=== PATIENT | male | born 1990 | race Caucasian/White ===

== ENCOUNTER 2017-06-03 19:14 | Emergency (ER) | payer OTHER ==
[~2017-06-03] VITALS: Ht 180.3 cm; Wt 70.0 kg
[~2017-06-03 19:14] MED LIST: CEFTR2P2 IV; HYDR10TA16 PO
--- NOTE | 2017-06-03 19:33 | PD ---
HPI Chief Complaint: ba Time Seen by Provider: 19:33 Travel History International Travel<30 days: No Contact w/Intl Traveler<30days: No Traveled to known affect area: No History of Present Illness HPI 27-year-old male presents to emergency department under Bee act for psychiatric evaluation. Patient reports an argument with his girlfriend caused him to become upset. He held a knife to his throat threatening to end it all. He states that he really has no intent to do this but was upset. Reports taking Suboxone and taking half an Adderall. Reports occasional cocaine use. Reports no medical history. No other symptoms to report at this time. PFSH Past Medical History Blood Disorders: No Heart Rhythm Problems: No Cancer: No Cardiovascular Problems: No High Cholesterol: No Chemotherapy: No Chest Pain: No Congestive Heart Failure: No Diabetes: No Endocrine: No Gastrointestinal Disorders: No Genitourinary: No Hepatitis: Yes (HEP C) Herniated Disk: Yes (L3, L4, L5) Immune Disorder: No Musculoskeletal: Yes (HERNIATED DISCS L3-L5) Neurologic: No Psychiatric: No Reproductive: No Respiratory: No Immunizations Current: No Thyroid Disease: No Past Surgical History Abdominal Surgery: No Cardiac Surgery: No Ear Surgery: No Endocrine Surgery: No Eye Surgery: No Genitourinary Surgery: No Gynecologic Surgery: No Oral Surgery: Yes (TONSIL REMOVAL) Thoracic Surgery: No Tonsillectomy: Yes Social History Alcohol Use: No Tobacco Use: Yes Substance Use: Yes Allergies-Medications (Allergen,Severity, Reaction): Uncoded Allergies: NAUSEA MEDICATION (Allergy, Severe, Anaphylaxis, 06/14/12) Reported Meds & Prescriptions Reported Meds & Active Scripts Active Review of Systems Except as stated in HPI: all other systems reviewed are Neg Physical Exam Narrative GENERAL: Thin male patient, sitting up on the stretcher in no acute distress SKIN: Focused skin assessment warm, diaphoretic HEAD: Atraumatic. Normocephalic. EYES: Pupils equal and round. No scleral icterus. No injection or drainage. ENT: No nasal bleeding or discharge. Mucous membranes pink and moist. NECK: Trachea midline. No JVD. CARDIOVASCULAR: Tachycardic rate and rhythm. No murmur appreciated. RESPIRATORY: No accessory muscle use. Clear to auscultation. Breath sounds equal bilaterally. GASTROINTESTINAL: Abdomen soft, non-tender, nondistended. Hepatic and splenic margins not palpable. MUSCULOSKELETAL: No obvious deformities. No clubbing. No cyanosis. No edema. NEUROLOGICAL: Awake and alert. No obvious cranial nerve deficits. Motor grossly within normal limits. Normal speech. Data Data Last Documented VS Vital Signs Date Time Temp Pulse Resp B/P Pulse Ox O2 Delivery O2 Flow Rate FiO2 06/03/17 19:51 99.7 124 16 146/98 100 Orders Complete Blood Count With Diff (06/03/17 19:32) Basic Metabolic Panel (Bmp) (06/03/17 19:32) Psych Screen (06/03/17 19:32) Drug Screen, Random Urine (06/03/17 19:32) Alcohol (Ethanol) (06/03/17 19:32) Salicylates (Aspirin) (06/03/17 19:32) Tylenol (Acetaminophen) (06/03/17 19:32) Iv Access Insert/Monitor (06/03/17 21:33) Sodium Chlor 0.9% 1000 Ml Inj (Ns 1000 M (06/03/17 21:45) Sodium Chlor 0.9% 1000 Ml Inj (Ns 1000 M (06/03/17 22:45) Sodium Chlor 0.9% 1000 Ml Inj (Ns 1000 M (06/03/17 22:45) Labs Laboratory Tests Test 06/03/17 20:15 White Blood Count 15.8 TH/MM3 Red Blood Count 5.27 MIL/MM3 Hemoglobin 15.9 GM/DL Hematocrit 45.1 % Mean Corpuscular Volume 85.6 FL Mean Corpuscular Hemoglobin 30.1 PG Mean Corpuscular Hemoglobin 35.2 % Concent Red Cell Distribution Width 12.5 % Platelet Count 312 TH/MM3 Mean Platelet Volume 6.7 FL Neutrophils (%) (Auto) 84.7 % Lymphocytes (%) (Auto) 9.2 % Monocytes (%) (Auto) 5.9 % Eosinophils (%) (Auto) 0.0 % Basophils (%) (Auto) 0.2 % Neutrophils # (Auto) 13.4 TH/MM3 Lymphocytes # (Auto) 1.5 TH/MM3 Monocytes # (Auto) 0.9 TH/MM3 Eosinophils # (Auto) 0.0 TH/MM3 Basophils # (Auto) 0.0 TH/MM3 CBC Comment DIFF FINAL Differential Comment Sodium Level 143 MEQ/L Potassium Level 3.8 MEQ/L Chloride Level 108 MEQ/L Carbon Dioxide Level 26.0 MEQ/L Anion Gap 9 MEQ/L Blood Urea Nitrogen 25 MG/DL Creatinine 1.59 MG/DL Estimat Glomerular Filtration 52 ML/MIN Rate Random Glucose 129 MG/DL Calcium Level 9.9 MG/DL Salicylates Level 1.8 MG/DL Acetaminophen Level LESS THAN 2.0 MCG/ML Ethyl Alcohol Level LESS THAN 3 MG/DL MDM Medical Decision Making Medical Screen Exam Complete: Yes Emergency Medical Condition: Yes Medical Record Reviewed: Yes Differential Diagnosis Mood disorder versus personality disorder versus adjustment reaction disorder versus substance abuse Narrative Course 27-year-old male presents to the emergency department under Bee act for psychiatric evaluation. Patient appears without distress. He is diaphoretic and tachycardic however he does admit to taking Adderall and occasional cocaine. CBC is with mild leukocytosis of 15.8, likely stress reaction. Chemistry is that the unit 25, creatinine 1.59, GFR 52. Patient is given 3 L normal saline IV fluids. Patient is medically cleared to undergo psychiatric screening for further evaluation and disposition. Mental health screening discussed with the patient. Psychiatric screen ordered. Diagnosis Primary Impression: Adjustment disorder with emotional disturbance Additional Impression: STACY (acute kidney injury) Condition: Stable Annabella Mae Jun 03, 2017 19:33
[2017-06-03 19:51] VITALS: BP 146/98; PULSE 124; RESP 16; TEMP 99.7; O2SAT 100
[2017-06-03 20:32] LABS: AUTOMATED NEUTROPHIL # 13.4 TH/MM3 (1.8-7.7); BASOPHIL % 0.2 % (0.0-2.0); HEMATOCRIT 45.1 % (39.0-51.0); HEMO FLAGS DIFF FINAL; LYMPH % 9.2 % (9.0-44.0); LYMPHOCYTE # 1.5 TH/MM3 (1.0-4.8); MEAN CELL VOLUME 85.6 FL (80.0-100.0); MEAN CORPUSCULAR HEMOGLOBIN 30.1 PG (27.0-34.0); MEAN CORPUSCULAR HGB CONC 35.2 % (32.0-36.0); MONO % 5.9 % (0.0-8.0); NEUT % 84.7 % (16.0-70.0); PLATELET COUNT 312 TH/MM3 (150-450); RED BLOOD COUNT 5.27 MIL/MM3 (4.50-5.90); RED CELL DISTRIBUTION WIDTH 12.5 % (11.6-17.2); WHITE BLOOD COUNT 15.8 TH/MM3 (4.0-11.0)
[2017-06-03 20:58] LABS: ANION GAP 9 MEQ/L (5-15); BLOOD UREA NITROGEN 25 MG/DL (7-18); CHLORIDE 108 MEQ/L (98-107); GLOMERULAR FILTRATION RATE 52 ML/MIN (>89); POTASSIUM 3.8 MEQ/L (3.5-5.1); SODIUM (NA) 143 MEQ/L (136-145)
[2017-06-03 20:59] LABS: ACETAMINOPHEN LESS THAN 2.0 MCG/ML (10.0-30.0)
[2017-06-03] MEDS ORDERED: SODIUM CHLOR 0.9% 1000 ML INJ 1,000 ML IV ONE ×3 (21:45→22:45)
[2017-06-04 07:19] VITALS: BP 128/86; PULSE 99; RESP 16; O2SAT 100
[2017-06-04] MEDS ORDERED: ACETAMINOPHEN 500 MG CPLT PO ONE (07:30)
[2017-06-04] MEDS ORDERED: ONDANSETRON ODT 4 MG TAB PO ONE (09:45)
[2017-06-04] MEDS ORDERED: diphenhydrAMINE HCL 50 MG/ML VIAL IV PUSH ONE (12:00)
[2017-06-04] MEDS ORDERED: PROCHLORPERAZINE INJ 10 MG/2 ML VIAL IV PUSH ONE (12:00)
[2017-06-04 12:02] VITALS: BP 130/80; PULSE 107; RESP 22; O2SAT 98
--- NOTE | 2017-06-04 12:29 | PD ---
History of Present Illness Chief Complaint: Psychiatric Symptoms Time Seen by Provider: 12:30 Travel History International Travel<30 Days: No Contact w/Intl Traveler<30days: No Known affected area: No Legal Status Legal Status: Bee Act Bee Act Signed By: Marjorie Hinds History of Present Illness: History of Present Illness HPI 27-year-old male with no previous psychiatric history presents to emergency department under Bee act for psychiatric evaluation. The BA alleges that he told his mother he took some Adderall and started to hallucinate . Family members stated that he put a knife to his neck and wanted to kill himself [place] was seeing people that were not there. I attempted to see the patient at 1230 but he had received medication and was unable to be evaluated as he was very sleepy. I saw him again this evening.he was asleep but awakened with verbal prompt. he is alert, coherent, calm. He denies any depression. Denies any suicidal or homicidal ideation. he has no recollection of saying he wanted to harm himself. He admits to use of amphetamines and other substances yesterday after he was involved in an argument with his girlfriend. He denies daily use. His toxicology is positive for amphetamines, benzos and cannabinoids. He denies daily use. he states " i would not want to hurt myself and I have no intention of hurting myself. I have a beautiful little boy named Danny that I love very much". PFSH Past Medical History Blood Disorders: No Heart Rhythm Problems: No Cancer: No Cardiovascular Problems: No High Cholesterol: No Chemotherapy: No Chest Pain: No Congestive Heart Failure: No Diabetes: No Diminished Hearing: No Endocrine: No Gastrointestinal Disorders: No Genitourinary: No Hepatitis: Yes (HEP C) Herniated Disk: Yes (L3, L4, L5) Immune Disorder: No Musculoskeletal: Yes (HERNIATED DISCS L3-L5) Neurologic: No Psychiatric: No Reproductive: No Respiratory: No Immunizations Current: No Thyroid Disease: No Tetanus Vaccination: Unknown Influenza Vaccination: No Past Surgical History Abdominal Surgery: No Cardiac Surgery: No Ear Surgery: No Endocrine Surgery: No Eye Surgery: No Genitourinary Surgery: No Gynecologic Surgery: No Oral Surgery: Yes (TONSIL REMOVAL) Thoracic Surgery: No Tonsillectomy: Yes Psychiatric History Psychiatric History Hx Psychiatric Treatment: ADJUSTEMENT DISORDER DIAGNOSIS History of Inpatient Treatment: Yes Guns or firearms in home: No Social History Single male . Works as a cinder block mason. Currently living with his mother. from his son's mother. Hx Alcohol Use: No Hx Tobacco Use: Yes Hx Substance Use: Yes Substance Use Type: Alcohol, Marijuana, Synth Opiates-Pain Pills Other Substances Used: PATIENT STATES HE TAKES SUBOXONE DAILY Hx of Substance Use Treatment: No Family Psychiatric History Negative Allergies-Medications (Allergen,Severity, Reaction): Uncoded Allergies: NAUSEA MEDICATION (Allergy, Severe, Anaphylaxis, 06/14/12) Reported Meds & Prescriptions Reported Meds & Active Scripts Active Review of Systems Except as stated in HPI: all other systems reviewed are Neg Exam Alert: Yes [place]: Person (ox4) Mood: Calm Affect: Appropriate Speech: Clear, Logical Eye Contact: Normal Memory Intact: Comment (No impairmetn) Hallucinations: Other (Negative) Delusions: No Suicidal: Ideation (Deneis any) Homicidal: Ideation (Deneis any) Insight/Judgement Fair. Not impaired. MDM Medical Decision Making Medical Record Reviewed: Yes Assessment/Plan 27 year old with history of substance use disorder. At thsi time he is calm and coherent and logical. There is no psychosis and no lisa. No suicidal or homicidal ideation, intent or plan. BA lifted. Counseled regarding substance use. Orders Complete Blood Count With Diff (06/03/17 19:32) Basic Metabolic Panel (Bmp) (06/03/17 19:32) Psych Screen (06/03/17 19:32) Drug Screen, Random Urine (06/03/17 19:32) Alcohol (Ethanol) (06/03/17 19:32) Salicylates (Aspirin) (06/03/17 19:32) Tylenol (Acetaminophen) (06/03/17 19:32) Iv Access Insert/Monitor (06/03/17 21:33) Sodium Chlor 0.9% 1000 Ml Inj (Ns 1000 M (06/03/17 21:45) Sodium Chlor 0.9% 1000 Ml Inj (Ns 1000 M (06/03/17 22:45) Sodium Chlor 0.9% 1000 Ml Inj (Ns 1000 M (06/03/17 22:45) Diet Regular Basic (06/04/17 Breakfast) Acetaminophen (Tylenol) (06/04/17 07:30) Ondansetron Odt (Zofran Odt) (06/04/17 09:45) Prochlorperazine Inj (Compazine Inj) (06/04/17 12:00) Diphenhydramine Inj (Benadryl Inj) (06/04/17 12:00) Results Vital Signs Date Time Temp Pulse Resp B/P Pulse Ox O2 Delivery O2 Flow Rate FiO2 06/04/17 12:02 107 22 130/80 98 Room Air 06/04/17 09:29 16 06/04/17 07:19 99 16 128/86 100 Room Air 06/03/17 19:51 99.7 124 16 146/98 100 Laboratory Tests Test 06/03/17 20:15 White Blood Count 15.8 Red Blood Count 5.27 Hemoglobin 15.9 Hematocrit 45.1 Mean Corpuscular Volume 85.6 Mean Corpuscular Hemoglobin 30.1 Mean Corpuscular Hemoglobin 35.2 Concent Red Cell Distribution Width 12.5 Platelet Count 312 Mean Platelet Volume 6.7 Neutrophils (%) (Auto) 84.7 Lymphocytes (%) (Auto) 9.2 Monocytes (%) (Auto) 5.9 Eosinophils (%) (Auto) 0.0 Basophils (%) (Auto) 0.2 Neutrophils # (Auto) 13.4 Lymphocytes # (Auto) 1.5 Monocytes # (Auto) 0.9 Eosinophils # (Auto) 0.0 Basophils # (Auto) 0.0 CBC Comment DIFF FINAL Differential Comment Sodium Level 143 Potassium Level 3.8 Chloride Level 108 Carbon Dioxide Level 26.0 Anion Gap 9 Blood Urea Nitrogen 25 Creatinine 1.59 Estimat Glomerular Filtration 52 Rate Random Glucose 129 Calcium Level 9.9 Salicylates Level 1.8 Acetaminophen Level LESS THAN 2.0 Ethyl Alcohol Level LESS THAN 3 Diagnosis Primary Impression: Adjustment disorder with emotional disturbance Additional Impressions: STACY (acute kidney injury) Substance induced mood disorder Psychiatrically Cleared: Yes Med/ Other Pt Specific Info: No Meds Exist/No RX given Disposition: 01 DISCHARGE HOME Condition: Stable Problem Qualifiers Kelly Redmond Jun 04, 2017 12:29
[2017-06-04 15:52] VITALS: BP 73/95; PULSE 95; RESP 18; TEMP 98.6; O2SAT 98
[2017-06-04 16:09] LABS: AMPHETAMINE, URINE POS (NEG); BARBITURATES, URINE NEG (NEG); COCAINE, URINE NEG (NEG)
== END 2017-06-04 22:05 | disposition home or self-care (01) ==
LOC: NEPD 19:14 → NEPJ 06-04 22:05
DX: F43.29 Adjustment disorder with other symptoms (principal); N17.9 Acute kidney failure, unspecified
CPT/HCPCS: 80048; 80307; 85025; 96361; 96374; 96375; 99284; J0780; J1200; J7030

== ENCOUNTER 2017-09-06 20:33 | Emergency (ER) | payer OTHER ==
[~2017-09-06] VITALS: Ht 182.9 cm; Wt 90.0 kg
[2017-09-06 21:01] VITALS: BP 118/65; PULSE 89; TEMP 99.2; O2SAT 99
[2017-09-06 21:34] LABS: AUTOMATED NEUTROPHIL # 8.3 TH/MM3 (1.8-7.7); BASOPHIL # 0.1 TH/MM3 (0-0.2); BASOPHIL % 0.5 % (0.0-2.0); EOSINOPHIL # 0.2 TH/MM3 (0-0.4); EOSINOPHIL % 1.5 % (0.0-4.0); HEMATOCRIT 44.2 % (39.0-51.0); HEMO FLAGS DIFF FINAL; LYMPH % 20.2 % (9.0-44.0); LYMPHOCYTE # 2.5 TH/MM3 (1.0-4.8); MEAN CELL VOLUME 87.7 FL (80.0-100.0); MEAN CORPUSCULAR HEMOGLOBIN 29.6 PG (27.0-34.0); MEAN CORPUSCULAR HGB CONC 33.7 % (32.0-36.0); MONO % 10.8 % (0.0-8.0); PLATELET COUNT 319 TH/MM3 (150-450); RED BLOOD COUNT 5.04 MIL/MM3 (4.50-5.90); RED CELL DISTRIBUTION WIDTH 12.8 % (11.6-17.2); WHITE BLOOD COUNT 12.3 TH/MM3 (4.0-11.0)
--- NOTE | 2017-09-06 21:34 | PD ---
HPI Chief Complaint: Psychiatric Symptoms Time Seen by Provider: 20:55 Travel History International Travel<30 days: No Contact w/Intl Traveler<30days: No Traveled to known affect area: No History of Present Illness HPI 27-year-old male that presents to the ED for evaluation of Rohit anand. Patient was Bee Police after apparently he was acting bizarre and possibly hallucinating. Apparently patient was seen during Her and there. He denies any fevers chills or sweats. She does have a history of substance abuse and per patient he takes Suboxone as well as marijuana. He denies any alcohol abuse today. Denies any use of Suboxone recently. Per patient she is a Suboxone for chronic pain. He denies any injuries. No cuts. He does appear to be somewhat paranoid on examination and asking multiple times if his son is coming or if his son is of side. He has an allergy to some nausea medication but he is not aware of the name. Denies any trauma or head injury. No IV drug abuse. History of chronic pain. Symptoms appear to have worsened today. Per Rohit miguel was concerned that he may be abusing narcotics. PFSH Past Medical History Blood Disorders: No Heart Rhythm Problems: No Cancer: No Cardiovascular Problems: No High Cholesterol: No Chemotherapy: No Chest Pain: No Congestive Heart Failure: No Diabetes: No Patient Takes Glucophage: No Diminished Hearing: No Endocrine: No Gastrointestinal Disorders: No Genitourinary: No Hepatitis: No (HEP C DENIED HX OF +TEST) Herniated Disk: Yes (L3, L4, L5) Immune Disorder: No Musculoskeletal: Yes (HERNIATED DISCS L3-L5) Neurologic: No Psychiatric: No Reproductive: No Respiratory: No Immunizations Current: Yes Thyroid Disease: No Tetanus Vaccination: < 5 Years Influenza Vaccination: Yes Past Surgical History Abdominal Surgery: No Cardiac Surgery: No Ear Surgery: No Endocrine Surgery: No Eye Surgery: No Genitourinary Surgery: No Gynecologic Surgery: No Oral Surgery: Yes (TONSIL REMOVAL) Thoracic Surgery: No Tonsillectomy: Yes Other Surgery: Yes Social History Alcohol Use: No Tobacco Use: Yes (1 PPD) Substance Use: Yes (CANNABIS, OPIATES, BENZOS, METH) Allergies-Medications (Allergen,Severity, Reaction): Uncoded Allergies: NAUSEA MEDICATION (Allergy, Severe, Anaphylaxis, 06/14/12) Reported Meds & Prescriptions Reported Meds & Active Scripts Active Review of Systems Except as stated in HPI: all other systems reviewed are Neg Physical Exam Narrative GENERAL: SKIN: Warm and dry. HEAD: Atraumatic. Normocephalic. EYES: Pupils equal and round. No scleral icterus. No injection or drainage. ENT: No nasal bleeding or discharge. Mucous membranes pink and moist. Tongue is midline. No uvula deviation. NECK: Trachea midline. No JVD. CARDIOVASCULAR: Regular rate and rhythm. No murmurs, S3, S4. RESPIRATORY: No accessory muscle use. Clear to auscultation. Breath sounds equal bilaterally. GASTROINTESTINAL: Abdomen soft, non-tender, nondistended. Hepatic and splenic margins not palpable. MUSCULOSKELETAL: Extremities without clubbing, cyanosis, or edema. No obvious deformities. Full range of motion of the upper and lower extremities bilaterally. 2+ pulses bilaterally. NEUROLOGICAL: Awake and alert. No obvious cranial nerve deficits. Motor grossly within normal limits. Five out of 5 muscle strength in the arms and legs. Normal speech. PSYCHIATRIC: Appropriate mood and affect; insight and judgment normal. Data Data Last Documented VS Vital Signs Date Time Temp Pulse Resp B/P (MAP) Pulse Ox O2 Delivery O2 Flow Rate FiO2 09/06/17 21:01 99.2 89 118/65 (82) 99 Orders Orders Complete Blood Count With Diff (09/06/17 20:55) Comprehensive Metabolic Panel (09/06/17 20:55) Psych Screen (09/06/17 20:55) Drug Screen, Random Urine (09/06/17 20:55) Alcohol (Ethanol) (09/06/17 20:55) Salicylates (Aspirin) (09/06/17 20:55) Tylenol (Acetaminophen) (09/06/17 20:55) ^ Sitter (09/06/17 21:15) Labs Laboratory Tests Test 09/06/17 21:00 White Blood Count 12.3 TH/MM3 Red Blood Count 5.04 MIL/MM3 Hemoglobin 14.9 GM/DL Hematocrit 44.2 % Mean Corpuscular Volume 87.7 FL Mean Corpuscular Hemoglobin 29.6 PG Mean Corpuscular Hemoglobin Concent 33.7 % Red Cell Distribution Width 12.8 % Platelet Count 319 TH/MM3 Mean Platelet Volume 6.4 FL Neutrophils (%) (Auto) 67.0 % Lymphocytes (%) (Auto) 20.2 % Monocytes (%) (Auto) 10.8 % Eosinophils (%) (Auto) 1.5 % Basophils (%) (Auto) 0.5 % Neutrophils # (Auto) 8.3 TH/MM3 Lymphocytes # (Auto) 2.5 TH/MM3 Monocytes # (Auto) 1.3 TH/MM3 Eosinophils # (Auto) 0.2 TH/MM3 Basophils # (Auto) 0.1 TH/MM3 CBC Comment DIFF FINAL Differential Comment Blood Urea Nitrogen 18 MG/DL Creatinine 1.16 MG/DL Random Glucose 102 MG/DL Total Protein 8.6 GM/DL Albumin 4.9 GM/DL Calcium Level 9.9 MG/DL Alkaline Phosphatase 77 U/L Aspartate Amino Transf (AST/SGOT) 49 U/L Alanine Aminotransferase (ALT/SGPT) 34 U/L Total Bilirubin 1.4 MG/DL Sodium Level 139 MEQ/L Potassium Level 3.6 MEQ/L Chloride Level 101 MEQ/L Carbon Dioxide Level 28.6 MEQ/L Anion Gap 9 MEQ/L Estimat Glomerular Filtration Rate 75 ML/MIN Salicylates Level LESS THAN 1.7 MG/DL Acetaminophen Level LESS THAN 2.0 MCG/ML Ethyl Alcohol Level LESS THAN 3 MG/DL MDM Medical Decision Making Medical Screen Exam Complete: Yes Emergency Medical Condition: Yes Medical Record Reviewed: Yes Interpretation(s) CBC & BMP Diagram 09/06/17 21:00 Total Protein 8.6 H, Albumin 4.9, Calcium Level 9.9, Alkaline Phosphatase 77, Aspartate Amino Transf (AST/SGOT) 49 H, Alanine Aminotransferase (ALT/SGPT) 34, Total Bilirubin 1.4 H Differential Diagnosis Depression versus suicidal ideation versus anxiety versus adjustment disorder versus mood disorder versus bipolar disorder versus schizophrenia versus paranoid disorder versus psychosis versus substance abuse versus alcohol abuse versus alcohol induced psychosis versus homicidality addition versus cutting versus personality disorder Narrative Course 27-year-old male to presents to the ED for evaluation of psychiatric illness. Patient was properly examined and was found to have signs and symptoms consistent appears to be likely substance abuse. Labs were ordered. Patient will be medically clear pending labs. Okay to be seen by psych. Mental health screening was discussed with the patient. Diagnosis Primary Impression: Substance induced mood disorder Ruddy Maddox Sep 06, 2017 21:34
[2017-09-06 21:46] LABS: ANION GAP 9 MEQ/L (5-15); AST (GOT) 49 U/L (15-37); BICARBONATE 28.6 MEQ/L (21.0-32.0); BLOOD UREA NITROGEN 18 MG/DL (7-18); CHLORIDE 101 MEQ/L (98-107); GLOMERULAR FILTRATION RATE 75 ML/MIN (>89); POTASSIUM 3.6 MEQ/L (3.5-5.1); SODIUM (NA) 139 MEQ/L (136-145)
[2017-09-06 21:47] LABS: ALT (GPT) 34 U/L (12-78)
[2017-09-06 21:49] LABS: ALKALINE PHOSPHATASE 77 U/L (45-117); TOTAL BILIRUBIN ADULT 1.4 MG/DL (0.2-1.0)
[2017-09-06 21:53] LABS: ALCOHOL LESS THAN 3 MG/DL (0-5)
[2017-09-06 21:54] LABS: ACETAMINOPHEN LESS THAN 2.0 MCG/ML (10.0-30.0)
[2017-09-06] MEDS ORDERED: LORazepam 2 MG/ML VIAL IM ONE (23:15)
[2017-09-07] MEDS ORDERED: OLANZapine IM 10 MG VIAL IM ONE (00:45)
[2017-09-07] MEDS ORDERED: diphenhydrAMINE HCL 50 MG/ML VIAL IM ONE (00:45)
[2017-09-07] MEDS ORDERED: HALOPERIDOL LACTATE 5 MG/ML AMP ONE (01:03)
[2017-09-07] MEDS ORDERED: LORazepam 2 MG/ML VIAL IM ONE ×2 (01:15→05:15)
[2017-09-07] MEDS ORDERED: HALOPERIDOL LACTATE 5 MG/ML AMP IM ONE (01:15)
[2017-09-07 02:06] VITALS: BP 129/59; PULSE 85; RESP 16; TEMP 96; O2SAT 98
[2017-09-07 02:59] VITALS: BP 117/62; PULSE 98; RESP 20; TEMP 97.1; O2SAT 99
[2017-09-07 05:07] VITALS: BP 132/80; PULSE 92; RESP 18; TEMP 96.5; O2SAT 99
--- NOTE | 2017-09-07 12:50 | PD ---
Physical Exam Time Seen by Provider: 12:48 TRAMAINE Clark has evaluated the patient, lifted the Bee act, and cleared the Patient for discharge. Data Data Last Documented VS Vital Signs Date Time Temp Pulse Resp B/P (MAP) Pulse Ox O2 Delivery O2 Flow Rate FiO2 09/07/17 05:07 96.5 92 18 132/80 (97) 99 Room Air Orders Orders Complete Blood Count With Diff (09/06/17 20:55) Comprehensive Metabolic Panel (09/06/17 20:55) Psych Screen (09/06/17 20:55) Drug Screen, Random Urine (09/06/17 20:55) Alcohol (Ethanol) (09/06/17 20:55) Salicylates (Aspirin) (09/06/17 20:55) Tylenol (Acetaminophen) (09/06/17 20:55) ^ Sitter (09/06/17 21:15) Lorazepam Inj (Ativan Inj) (09/06/17 23:15) Olanzapine Inj (Zyprexa Inj) (09/07/17 00:45) Diphenhydramine Inj (Benadryl Inj) (09/07/17 00:45) Lorazepam Inj (Ativan Inj) (09/07/17 01:15) Haloperidol Inj (Haldol Inj) (09/07/17 01:15) Haloperidol Inj (Haldol Inj) (09/07/17 01:03) Restraints Violent (09/07/17 02:35) Lorazepam Inj (Ativan Inj) (09/07/17 05:15) Diet Regular Basic (09/07/17 Breakfast) Diet Regular Basic (09/07/17 Lunch) Labs Laboratory Tests Test 09/06/17 21:00 White Blood Count 12.3 TH/MM3 Red Blood Count 5.04 MIL/MM3 Hemoglobin 14.9 GM/DL Hematocrit 44.2 % Mean Corpuscular Volume 87.7 FL Mean Corpuscular Hemoglobin 29.6 PG Mean Corpuscular Hemoglobin Concent 33.7 % Red Cell Distribution Width 12.8 % Platelet Count 319 TH/MM3 Mean Platelet Volume 6.4 FL Neutrophils (%) (Auto) 67.0 % Lymphocytes (%) (Auto) 20.2 % Monocytes (%) (Auto) 10.8 % Eosinophils (%) (Auto) 1.5 % Basophils (%) (Auto) 0.5 % Neutrophils # (Auto) 8.3 TH/MM3 Lymphocytes # (Auto) 2.5 TH/MM3 Monocytes # (Auto) 1.3 TH/MM3 Eosinophils # (Auto) 0.2 TH/MM3 Basophils # (Auto) 0.1 TH/MM3 CBC Comment DIFF FINAL Differential Comment Blood Urea Nitrogen 18 MG/DL Creatinine 1.16 MG/DL Random Glucose 102 MG/DL Total Protein 8.6 GM/DL Albumin 4.9 GM/DL Calcium Level 9.9 MG/DL Alkaline Phosphatase 77 U/L Aspartate Amino Transf (AST/SGOT) 49 U/L Alanine Aminotransferase (ALT/SGPT) 34 U/L Total Bilirubin 1.4 MG/DL Sodium Level 139 MEQ/L Potassium Level 3.6 MEQ/L Chloride Level 101 MEQ/L Carbon Dioxide Level 28.6 MEQ/L Anion Gap 9 MEQ/L Estimat Glomerular Filtration Rate 75 ML/MIN Salicylates Level LESS THAN 1.7 MG/DL Acetaminophen Level LESS THAN 2.0 MCG/ML Ethyl Alcohol Level LESS THAN 3 MG/DL MDM Supervised Visit with MANDEEP: No Narrative Course TRAMAINE Mendoza has evaluated the patient, lifted the Bee act, and cleared the Patient for discharge.. Patient contracts safety. Denies suicidal or homicidal ideations. Patient will be provided community resource packet to [facility] for follow-up. Has friends and family for support. Patient is medically cleared for discharge. Diagnosis Primary Impression: Substance induced mood disorder Referrals: SANJAY (Out patient) [facility] Primary Care Physician Psychiatrist [facility] Patient Instructions: Abuse of Alcohol (ED), General Instructions, Mood Disorders (ED), Polysubstance Abuse (ED) Additional Instruction: Contract safety to your self and others Stop using drugs Follow-up with psychiatry Follow-up with primary care provider Follow-up with Frankie Pantoja Return to the emergency department immediately with worsening of symptoms Med/Other Pt SpecificInfo: No Change to Meds, No Meds Exist/No RX given Disposition: 01 DISCHARGE HOME Condition: Stable Jackie España Sep 07, 2017 12:50
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
== END 2017-09-07 13:20 | disposition home or self-care (01) ==
LOC: NEDAMB 20:33 → NEPJ 09-07 13:20
DX: F15.151 Other stimulant abuse with stimulant-induced psychotic disorder with hallucinations (principal); F15.10 Other stimulant abuse, uncomplicated; G89.29 Other chronic pain; Z72.0 Tobacco use
CPT/HCPCS: 80053; 80307; 85025; 96372; 99285; J1200; J1630; J2060